=== PATIENT | female | born 1945 | race Asian ===

== ENCOUNTER 2023-11-23 07:53 | Inpatient (IN) | payer MEDICARE ==
[~2023-11-23] VITALS: Ht 157.5 cm; Wt 61.2 kg
[2023-11-23] MEDS ORDERED: HYDR500C2 PO (08:22)
[2023-11-23] MEDS ORDERED: AMLO5TAB4 PO (08:22)
[2023-11-23] MEDS ORDERED: DULO20CA PO (08:22)
[2023-11-23] MEDS ORDERED: OLME1TAB16 PO (08:22)
[2023-11-23] MEDS ORDERED: dexaMETHasone SOD PHOSPHATE 2 ML ONE (09:16)
[2023-11-23] MEDS ORDERED: LIDOCAINE 2%-EPI 1:100,000 30 ML VIAL ONE (09:16)
[2023-11-23] MEDS ORDERED: VANCOMYCIN 1 GM VIAL ONE (09:17)
[2023-11-23] MEDS ORDERED: ONDANSETRON HCL/PF 4 MG/2 ML VIAL IVP PRN (12:00)
[2023-11-23] MEDS ORDERED: IV NS 0.9% 1,000 ML IV PRN (12:00)
[2023-11-23] MEDS ORDERED: ACETAMINOPHEN 325 MG TABLET PO PRN (12:00)
[2023-11-23] MEDS: HYDROMORPHONE 1 MG/1 ML DISP.SYRIN IV PRN ×2 (13:21→17:58)
[2023-11-23 16:00] VITALS: BP 110/65; TEMP 98.4; O2SAT 95
[2023-11-23 20:00] VITALS: BP 112/70; TEMP 97.6; O2SAT 94
[2023-11-23] MEDS: VANCOMYCIN 1 GM in IV D5W 250ml IV SCH (21:32)
[2023-11-24 08:00] VITALS: BP 138/60; TEMP 98.6; O2SAT 97
[2023-11-24 08:12] VITALS: BP 138/60
[2023-11-24] MEDS ORDERED: LOSARTAN POTASSIUM 50 MG TABLET PO SCH (09:00)
[2023-11-24] MEDS ORDERED: DULOXETINE HCL 20 MG CAPSULE.DR PO SCH (09:00)
[2023-11-24] MEDS ORDERED: HYDROCHLOROTHIAZIDE 25 MG TABLET PO SCH (09:00)
[2023-11-24] MEDS ORDERED: AMLODIPINE BESYLATE 5 MG TABLET PO SCH (09:00)
[2023-11-24] MEDS: VANCOMYCIN 1 GM in IV D5W 250ml IV SCH (09:33)
[2023-11-24] MEDS ORDERED: diphenhydrAMINE HCL ELIX 25 MG/10 ML UDC PO PRN (10:30)
[2023-11-24] MEDS ORDERED: HYDROCODONE/APAP 10/325MG TABLET PO PRN (10:30)
== END 2023-11-24 12:00 | disposition home or self-care (01) | DRG 145 ==
LOC: DS 07:53 → MED 07:55
PROVIDERS: ADMIT Internal Medicine; ATTEND Internal Medicine
PROC: 0NHR04Z Insertion of Internal Fixation Device into Maxilla, Open Approach (ICD-10-PCS; principal; 2023-11-23)
PROC: 0NUR07Z Supplement Maxilla with Autologous Tissue Substitute, Open Approach (ICD-10-PCS; 2023-11-23)
PROC: 09BR0ZZ Excision of Left Maxillary Sinus, Open Approach (ICD-10-PCS; 2023-11-23)
DX: S02.40DA Maxillary fracture, left side, initial encounter for closed fracture (principal); J32.0 Chronic maxillary sinusitis; D75.839 Thrombocytosis, unspecified; F32.9 Major depressive disorder, single episode, unspecified; Z87.891 Personal history of nicotine dependence; I10 Essential (primary) hypertension; X58.XXXD Exposure to other specified factors, subsequent encounter
CPT/HCPCS: A4223; C1713; G0378; J0690; J1100; J1170; J2704; J2765; J3370; J3490; J7030; J7060; Q0163